=== PATIENT | male | born 1950 | race Caucasian/White ===

== ENCOUNTER → 2017-05-18 | Outpatient (CLI) | payer MEDICARE, OTHER ==
--- NOTE | 2017-05-18 14:03 | RAD ---
Chest, 2 views, 05/18/2017: History: Cough The heart size and pulmonary vascularity are normal. No pulmonary infiltrate is seen. There is no evidence of pleural fluid. Mild spurring is present in the spine. IMPRESSION: No acute cardiopulmonary abnormality is detected.
== END | disposition home or self-care (01) ==
LOC: DXRAD 12:30 → EDBD 12:30
PROVIDERS: ATTEND Family Medicine
DX: R05 Cough (principal); M46.09 Spinal enthesopathy, multiple sites in spine
CPT/HCPCS: 71046